=== PATIENT | male | born 1985 | race Two or more races ===

== ENCOUNTER 2020-09-21 05:55 | Emergency (ER) | payer OTHER ==
[~2020-09-21] VITALS: Ht 170.2 cm; Wt 70.5 kg
[2020-09-21 05:58] VITALS: BP 147/96
[2020-09-21] MEDS ORDERED: ACETAMINOPHEN 500 MG TABLET PO ONE (06:30)
[2020-09-21 07:51] LABS: COVID AG,FIA SOURCE NASOPHARYNGEAL
== END 2020-09-21 07:46 | disposition home or self-care (01) ==
LOC: EMS 05:56
DX: J02.9 Acute pharyngitis, unspecified (principal); Z20.828 Contact with and (suspected) exposure to other viral communicable diseases
CPT/HCPCS: 87426; 99283; C9803; U0003

== ENCOUNTER 2021-02-01 20:45 | Emergency (ER) | payer OTHER ==
[~2021-02-01] VITALS: Ht 170.2 cm; Wt 77.3 kg
[2021-02-01 20:51] VITALS: BP 126/68
[2021-02-01 21:59] LABS: COVID AG,FIA SOURCE NASAL SWAB
== END 2021-02-01 23:15 | disposition home or self-care (01) ==
LOC: EMS 20:49
DX: Z20.822 Contact with and (suspected) exposure to COVID-19 (principal)
CPT/HCPCS: 87426; 99283